=== PATIENT | female | born 1945 | race African-American/Black ===

== ENCOUNTER 2021-05-28 19:10 | Emergency (ER) | payer OTHER ==
[~2021-05-28] VITALS: Ht 160 cm; Wt 79.4 kg
[~2021-05-28 19:10] MED LIST: ALTACE10 MG; COUMADIN4 MG; GLIPIZIDE5 MG; SYNTHROID75 MCG
[2021-05-28] MEDS ORDERED: LANTUS SOL100 UNIT/1 (19:53)
[2021-05-29] MEDS ORDERED: ACETAMINOPHEN650 M2 PO (07:27)
== END 2021-05-29 07:45 | disposition home or self-care (01) ==
LOC: ER 19:10
DX: A90 Dengue fever [classical dengue] (principal); B34.9 Viral infection, unspecified; Z03.818 Encounter for observation for suspected exposure to other biological agents ruled out; R06.02 Shortness of breath; R05.9 Cough, unspecified; R53.81 Other malaise; R53.1 Weakness

== ENCOUNTER → 2021-05-30 | Emergency (ER) | payer OTHER ==
[~2021-05-30] MED LIST changes: +ACETAMINOPHEN650 M2 PO; +LANTUS SOL100 UNIT/1
== END | disposition left against medical advice (07) ==
LOC: ER 19:36
DX: Z53.20 Procedure and treatment not carried out because of patient's decision for unspecified reasons (principal)

== ENCOUNTER 2021-07-15 22:05 | Emergency (ER) | payer OTHER ==
[~2021-07-15] VITALS: Ht 160 cm; Wt 81.2 kg
[2021-07-16] MEDS ORDERED: KETO10TA2 PO (16:02)
== END 2021-07-15 22:48 | disposition home or self-care (01) ==
LOC: ER 22:05
DX: M79.661 Pain in right lower leg (principal)

== ENCOUNTER 2021-07-16 12:13 | Emergency (ER) | payer OTHER ==
[~2021-07-16] VITALS: Ht 160 cm; Wt 81.2 kg
[2021-07-16] MEDS ORDERED: KETO10TA2 PO (16:02)
== END 2021-07-16 17:56 | disposition home or self-care (01) ==
LOC: ER 12:13
DX: M79.661 Pain in right lower leg (principal)

== ENCOUNTER 2021-07-21 15:44 | Emergency (ER) | payer OTHER ==
[~2021-07-21] VITALS: Ht 160 cm; Wt 79.4 kg
[~2021-07-21 15:44] MED LIST changes: +KETO10TA2 PO
[2021-07-21] MEDS ORDERED: GABAPENTIN300 M2 PO (16:46)
[2021-07-21] MEDS ORDERED: LEVOTHYROXINE100 MCG PO (16:47)
== END 2021-07-21 20:16 | disposition home or self-care (01) ==
LOC: ER 15:44
DX: R60.0 Localized edema (principal)

== ENCOUNTER 2021-07-26 09:03 | Emergency (ER) | payer OTHER ==
[~2021-07-26] VITALS: Ht 160 cm; Wt 80.7 kg
[~2021-07-26 09:03] MED LIST changes: +GABAPENTIN300 M2 PO; +LEVOTHYROXINE100 MCG PO
== END 2021-07-26 16:11 | disposition home or self-care (01) ==
LOC: ER 09:03
DX: R07.89 Other chest pain (principal); I10 Essential (primary) hypertension; E11.9 Type 2 diabetes mellitus without complications; Z79.4 Long term (current) use of insulin; Z20.822 Contact with and (suspected) exposure to COVID-19

== ENCOUNTER 2021-08-12 09:51 | Emergency (ER) | payer OTHER ==
[~2021-08-12] VITALS: Ht 160 cm; Wt 79.4 kg
[2021-08-12] MEDS ORDERED: JANTOVEN1 MG (10:43)
[2021-08-12] MEDS ORDERED: ULTRAM50 MG (10:44)
[2021-08-12] MEDS ORDERED: ZESTRIL2.5 MG (10:44)
[2021-08-12] MEDS ORDERED: TOPROL XL25 M1 (10:45)
[2021-08-12] MEDS ORDERED: ZOCOR20 MG (10:46)
== END 2021-08-12 15:59 | disposition home or self-care (01) ==
LOC: ER 09:51
DX: S00.83XA Contusion of other part of head, initial encounter (principal); S80.01XA Contusion of right knee, initial encounter; S90.31XA Contusion of right foot, initial encounter; W18.39XA Other fall on same level, initial encounter; Y92.9 Unspecified place or not applicable; Z91.09 Other allergy status, other than to drugs and biological substances

== ENCOUNTER → 2022-12-05 | Emergency (ER) | payer OTHER ==
[~2022-12-05] VITALS: Ht 160 cm; Wt 79.4 kg
[~2022-12-05] MED LIST changes: +JANTOVEN1 MG; +PEPCID40 MG PO; +TOPROL XL25 M1; +ULTRAM50 MG; +ZESTRIL2.5 MG; +ZOCOR20 MG
== END | disposition home or self-care (01) ==
LOC: ER 20:27
DX: K21.9 Gastro-esophageal reflux disease without esophagitis (principal); R07.89 Other chest pain; Z20.822 Contact with and (suspected) exposure to COVID-19; I10 Essential (primary) hypertension; E03.8 Other specified hypothyroidism; E11.9 Type 2 diabetes mellitus without complications; Z79.4 Long term (current) use of insulin; Z88.8 Allergy status to other drugs, medicaments and biological substances